=== PATIENT | female | born 1995 | race African-American/Black ===

== ENCOUNTER 2018-02-05 23:54 | Emergency (ER) | payer OTHER, MEDICAID ==
[~2018-02-05] VITALS: Ht 175.3 cm; Wt 73.0 kg
[2018-02-06] MEDS ORDERED: OLANZAPINE 10 MG/VIAL IM ONE (00:15)
[2018-02-06 00:53] LABS: BASOPHILS % 0.2 % (0.0-2.0); CHLORIDE 114 mEq/L (98-107); EOSINOPHILS % 1.2 % (0.0-5.0); HEMATOCRIT. 37.3 % (36.0-48.0); HEMOGLOBIN. 12.5 g/dL (12.0-16.0); LYMPHOCYTES % 51.4 % (20.0-50.0); MEAN CORPUSCULAR HEMOGLOBIN 29.4 pg (28.0-32.0); MONOCYTES % 6.2 % (2.0-8.0); PLATELET 366 x1000/uL (130-400); RED BLOOD CELL COUNT 4.24 mill/uL (4.2-5.4); RED CELL DISTRIBUTION WIDTH 13.7 % (11.6-14.6)
[2018-02-06 00:58] LABS: ETHANOL BLOOD 270 mg/dL
[2018-02-06 03:17] LABS: CLARITY URINE CLEAR (CLEAR); COLOR URINE YELLOW (YELLOW); KETONES URINE NEGATIVE (NEGATIVE); LEUKOCYTE ESTERASE URINE TRACE (NEGATIVE); NITRITE URINE NEGATIVE (NEGATIVE); OCCULT BLOOD URINE 1+ (NEGATIVE); PROTEIN URINE NEGATIVE (NEGATIVE); SPECIFIC GRAVITY URINE 1.012 (1.005-1.030); UROBILINOGEN URINE 0.2 E.U./dL (0.2-1.0)
[2018-02-06 03:18] LABS: *AMPHETAMINES SCREEN URINE NEGATIVE (NEGATIVE); *BARBITURATES SCREEN URINE NEGATIVE (NEGATIVE); *BENZODIAZEPINES SCREEN URINE NEGATIVE (NEGATIVE); *COCAINE SCREEN URINE NEGATIVE (NEGATIVE)
[2018-02-06 03:19] LABS: CANNABINOID URINE SCREEN NEGATIVE (NEGATIVE); METHADONE URINE SCREEN NEGATIVE (NEGATIVE); OPIATES URINE SCREEN NEGATIVE (NEGATIVE); PHENCYCLIDINE URINE SCREEN NEGATIVE (NEGATIVE)
[2018-02-06 17:30] VITALS: BP 106/74
== END 2018-02-06 17:30 | disposition home or self-care (01) ==
LOC: ER 02-06 00:12
DX: F28 Other psychotic disorder not due to a substance or known physiological condition (principal); F20.9 Schizophrenia, unspecified; R41.82 Altered mental status, unspecified
CPT/HCPCS: 36415; 80053; 80305; 80307; 80329; 81003; 81025; 85025; 96372; 99284; G0482; J3490; J7030

== ENCOUNTER 2021-09-23 04:45 | Emergency (ER) | payer MEDICAID, OTHER ==
[~2021-09-23] VITALS: Ht 172.7 cm; Wt 60.0 kg
[2021-09-23 08:04] VITALS: BP 100/60
[2021-09-23] MEDS ORDERED: TOPUD PO (09:33)
== END 2021-09-23 09:15 | disposition home or self-care (01) ==
LOC: ER 04:45
DX: S01.111A Laceration without foreign body of right eyelid and periocular area, initial encounter (principal); Y00.XXXA Assault by blunt object, initial encounter; F10.129 Alcohol abuse with intoxication, unspecified; Y90.9 Presence of alcohol in blood, level not specified; Y93.89 Activity, other specified; Y92.89 Other specified places as the place of occurrence of the external cause
CPT/HCPCS: 70486; 99284

== ENCOUNTER 2022-12-08 11:13 | Emergency (ER) | payer MEDICAID ==
[~2022-12-08] VITALS: Ht 167.6 cm; Wt 69.0 kg
[~2022-12-08 11:13] MED LIST: TOPUD PO
[2022-12-08 11:14] VITALS: O2SAT 99
[2022-12-08 12:24] LABS: BASOPHILS % 0.1 % (0.0-2.0); EOSINOPHILS % 0.7 % (0.0-5.0); HEMATOCRIT. 34.6 % (36.0-48.0); HEMOGLOBIN. 11.8 g/dL (12.0-16.0); LYMPHOCYTES % 30.8 % (20.0-50.0); MEAN CORPUSCULAR HEMOGLOBIN 28.6 pg (28.0-32.0); MEAN CORPUSCULAR HGB CONC 34.1 g/dL (31.0-37.0); MEAN CORPUSCULAR VOLUME 83.8 fL (81.0-99.0); MEAN PLATELET VOLUME 7.6 fl (7.4-10.4); MONOCYTES % 13.1 % (2.0-8.0); NEUTROPHILS % 55.3 % (40.0-76.0); PLATELET 207 x1000/uL (130-400); RED BLOOD CELL COUNT 4.13 mill/uL (4.2-5.4); RED CELL DISTRIBUTION WIDTH 15.5 % (11.6-14.6); WHITE BLOOD COUNT 6.8 x1000/uL (4.5-11.0)
[2022-12-08 12:47] LABS: CHLORIDE 113 mEq/L (98-107); INDEX HEMOLYSI 1 (1-3); INDEX ICTERIC 1 (1-4); INDEX LIPEMIC 1 (1-3); POTASSIUM 3.3 mEq/L (3.5-5.1); SODIUM 142 mEq/L (136-145)
[2022-12-08 12:55] LABS: HCG SCREEN NEGATIVE
[2022-12-08 12:56] LABS: ALANINE AMINOTRANSFERASE 79 IU/L (13-61); ALBUMIN 3.9 g/dL (3.4-5.0); ASPARTATE AMINOTRANSFERASE 136 IU/L (15-37); BILIRUBIN TOTAL 1.2 mg/dL (0.1-1.0); CALCIUM 8.4 mg/dL (8.5-10.1); CARBON DIOXIDE 17 mEq/L (21-32); CREATININE 0.9 mg/dL (0.6-1.3); ETHANOL BLOOD 98 mg/dL (-10); GLUCOSE 86 mg/dL (70-105); UREA NITROGEN BLOOD 20 mg/dL (7-21)
[2022-12-08 18:14] VITALS: BP 88/48; PULSE 104; RESP 20; TEMP 98.4
== END 2022-12-08 19:11 | disposition home or self-care (01) ==
LOC: ER 11:13
DX: G93.40 Encephalopathy, unspecified (principal); Z98.890 Other specified postprocedural states
CPT/HCPCS: 36415; 80053; 80320; 84703; 85025; 99284; G0480

== ENCOUNTER 2022-12-08 23:45 | Emergency (ER) | payer MEDICAID ==
[~2022-12-08] VITALS: Ht 177.8 cm; Wt 73.0 kg
[2022-12-08 23:46] VITALS: BP 119/82; PULSE 113; RESP 14; TEMP 97.9; O2SAT 99
[2022-12-09] MEDS ORDERED: DIPHENHYDRAMINE 50MG/ML VIAL IM PRN (00:15)
[2022-12-09] MEDS ORDERED: ZIPRASIDONE MESYLATE 20MG/VIAL IM ONE (00:15)
[2022-12-09] MEDS ORDERED: LORAZEPAM 2MG/ML CPJ IM PRN (00:15)
== END 2022-12-09 07:36 | disposition home or self-care (01) ==
LOC: ER 23:45
DX: F19.10 Other psychoactive substance abuse, uncomplicated (principal); R41.82 Altered mental status, unspecified; F20.9 Schizophrenia, unspecified; Z98.890 Other specified postprocedural states
CPT/HCPCS: 99283; J3486